=== PATIENT | female | born 1955 | race Caucasian/White ===

== ENCOUNTER 2022-03-14 14:38 | Inpatient (IN) | payer BC ==
[~2022-03-14] VITALS: Ht 160 cm; Wt 67.7 kg
[2022-03-14 15:00] VITALS: BP_SYST 149
[2022-03-14 17:49] LABS: MEAN CORPUSCULAR HEMOGLOBIN 23 pg (27-31); MEAN CORPUSCULAR HGB CONC 31 % (32-36); MEAN CORPUSCULAR VOLUME 76 fL (79.0-98.0); PLATELET COUNT (AUTO) 133 K/uL (130-430); RED BLOOD CELL COUNT(AUTO) 2.85 MIL/uL (4.2-6.2); RED CELL DISTRIBUTION WIDTH 18.8 % (9.0-15.0); WHITE BLOOD COUNT (AUTO) 3.8 K/uL (4.8-10.8)
[2022-03-14 18:02] LABS: CALCIUM 8.4 mg/dL (8.4-11.0); CREATININE 0.66 mg/dL (0.55-1.30); POTASSIUM 3.5 mmol/L (3.5-5.1)
[2022-03-14 18:07] LABS: ALBUMIN 2.6 g/dL (3.4-4.8); TOTAL BILIRUBIN 1.6 mg/dL (0.0-1.0)
[2022-03-14 23:16] LABS: HEMOGLOBIN 6.6 g/dL (12.0-16.0)
[2022-03-14 23:17] LABS: BAND % (MANUAL) 1 % (0-6); BASOPHILS % (MANUAL) 0 % (0-2); EOSINOPHILS % (MANUAL) 3 % (0-7); HEMATOCRIT 21.6 % (36-48); LYMPHOCYTES % (MANUAL) 19 % (20-46); MONOCYTES % (MANUAL) 1 % (0-11)
[2022-03-15 00:56] VITALS: BP_SYST 137
[2022-03-15 01:14] VITALS: BP_SYST 134
[2022-03-15] MEDS: ACETAMINOPHEN 325 MG TABLET PO PRN (06:20)
[2022-03-15 08:00] VITALS: BP_SYST 156
[2022-03-15] MEDS ORDERED: LORazepam 2 MG/ML VIAL IVP PRN (11:15)
[2022-03-15] MEDS ORDERED: ONDANSETRON HCL 4 MG/2 ML VIAL IVP PRN (11:15)
[2022-03-15] MEDS ORDERED: ACETAMINOPHEN 325 MG TABLET PO PRN (11:15)
[2022-03-15 11:37] LABS: BASOPHILS % (AUTO) 0.5 % (0.0-2.0); HEMATOCRIT 23.5 % (36-48); HEMOGLOBIN 7.5 g/dL (12.0-16.0); LYMPHOCYTES # (AUTO) 1.3 K/uL (1.0-5.5); LYMPHOCYTES % (AUTO) 28.5 % (20.5-51.5); MEAN CORPUSCULAR HEMOGLOBIN 25 pg (27-31); MEAN CORPUSCULAR HGB CONC 32 % (32-36); MEAN CORPUSCULAR VOLUME 77 fL (79.0-98.0); MONOCYTES # (AUTO) 0.3 K/uL (0.0-1.0); MONOCYTES % (AUTO) 7.4 % (1.7-9.3); NEUTROPHILS # (AUTO) 2.8 K/uL (1.8-7.7); NEUTROPHILS % (AUTO) 62.6 % (40.0-70.0); PLATELET COUNT (AUTO) 102 K/uL (130-430); RED BLOOD CELL COUNT(AUTO) 3.06 MIL/uL (4.2-6.2); RED CELL DISTRIBUTION WIDTH 18.7 % (9.0-15.0); WHITE BLOOD COUNT (AUTO) 4.4 K/uL (4.8-10.8)
[2022-03-15 12:00] VITALS: BP_SYST 155
[2022-03-15 12:32] LABS: CREATININE 0.68 mg/dL (0.55-1.30)
[2022-03-15 13:16] LABS: POTASSIUM 2.9 mmol/L (3.5-5.1)
[2022-03-15] MEDS ORDERED: POTASSIUM CHLORIDE 40 MEQ in NS 250 ML IV ONE (15:00)
[2022-03-15] MEDS: NORMAL SALINE 5 ML DISP.SYRIN IVF SCH ×4 (15:22→23:16)
[2022-03-15 16:00] VITALS: BP_SYST 151
[2022-03-15 20:00] VITALS: BP_SYST 147
[2022-03-16] MEDS: ACETAMINOPHEN 325 MG TABLET PO PRN ×2 (01:11→22:07)
[2022-03-16] MEDS: NORMAL SALINE 5 ML DISP.SYRIN IVF SCH ×6 (06:18→22:12)
[2022-03-16 07:00] VITALS: BP_SYST 145
[2022-03-16 08:00] VITALS: BP_SYST 145
[2022-03-16 09:15] LABS: CALCIUM 8.1 mg/dL (8.4-11.0); CREATININE 0.59 mg/dL (0.55-1.30)
[2022-03-16 09:22] LABS: POTASSIUM 2.8 mmol/L (3.5-5.1)
[2022-03-16 10:41] LABS: TOTAL IRON BIND. CAPACITY 297 ug/dL (250-450)
[2022-03-16 12:00] VITALS: BP_SYST 115
[2022-03-16 12:35] LABS: BASOPHILS % (AUTO) 0.4 % (0.0-2.0); EOSINOPHILS # (AUTO) 0.1 K/uL (0.0-0.4); EOSINOPHILS % (AUTO) 3.4 % (0.0-4.0); HEMATOCRIT 27.8 % (36-48); LYMPHOCYTES # (AUTO) 1.5 K/uL (1.0-5.5); LYMPHOCYTES % (AUTO) 40.4 % (20.5-51.5); MEAN CORPUSCULAR HEMOGLOBIN 26 pg (27-31); MEAN CORPUSCULAR HGB CONC 33 % (32-36); MEAN CORPUSCULAR VOLUME 79 fL (79.0-98.0); MONOCYTES # (AUTO) 0.2 K/uL (0.0-1.0); NEUTROPHILS # (AUTO) 1.9 K/uL (1.8-7.7); NEUTROPHILS % (AUTO) 49.8 % (40.0-70.0); PLATELET COUNT (AUTO) 85 K/uL (130-430); RED BLOOD CELL COUNT(AUTO) 3.52 MIL/uL (4.2-6.2); RED CELL DISTRIBUTION WIDTH 19.9 % (9.0-15.0); RETICULOCYTE COUNT 2.1 % (0.5-1.5); WHITE BLOOD COUNT (AUTO) 3.8 K/uL (4.8-10.8)
[2022-03-16] MEDS ORDERED: POTASSIUM CHLORIDE 20 MEQ/PKT PACKET PO ONE (15:00)
[2022-03-16 16:15] VITALS: BP_SYST 143
[2022-03-16 20:00] VITALS: BP_SYST 120
[2022-03-17] VITALS (7 sets, daily range): BP systolic 134–139
[2022-03-17] MEDS: NORMAL SALINE 5 ML DISP.SYRIN IVF SCH ×4 (06:40→13:52)
[2022-03-17 07:43] LABS: BASOPHILS % (AUTO) 0.7 % (0.0-2.0); EOSINOPHILS # (AUTO) 0.2 K/uL (0.0-0.4); EOSINOPHILS % (AUTO) 4.4 % (0.0-4.0); HEMATOCRIT 27.4 % (36-48); HEMOGLOBIN 8.7 g/dL (12.0-16.0); LYMPHOCYTES # (AUTO) 1.5 K/uL (1.0-5.5); LYMPHOCYTES % (AUTO) 41.4 % (20.5-51.5); MEAN CORPUSCULAR HEMOGLOBIN 25 pg (27-31); MEAN CORPUSCULAR HGB CONC 32 % (32-36); MEAN CORPUSCULAR VOLUME 79 fL (79.0-98.0); MONOCYTES # (AUTO) 0.3 K/uL (0.0-1.0); MONOCYTES % (AUTO) 7.3 % (1.7-9.3); NEUTROPHILS # (AUTO) 1.7 K/uL (1.8-7.7); NEUTROPHILS % (AUTO) 46.2 % (40.0-70.0); PLATELET COUNT (AUTO) 81 K/uL (130-430); RED BLOOD CELL COUNT(AUTO) 3.46 MIL/uL (4.2-6.2); WHITE BLOOD COUNT (AUTO) 3.7 K/uL (4.8-10.8)
[2022-03-17 08:06] LABS: FOLATE (FOLIC ACID) 4.9 ng/mL (>3.0)
[2022-03-17 08:14] LABS: CALCIUM 7.9 mg/dL (8.4-11.0); CREATININE 0.56 mg/dL (0.55-1.30)
[2022-03-17 09:34] LABS: POTASSIUM 3.2 mmol/L (3.5-5.1)
[2022-03-17] MEDS ORDERED: FERR250T2 PO (10:06)
== END 2022-03-17 14:30 | disposition home health service (06) | DRG 811 ==
LOC: SED 14:38 → EDSEX 14:38 → EDSTATUS 14:38 → SMU 20:02
PROVIDERS: ADMIT Preventive Medicine Preventive Medicine/Occupational Environmental Medicine; ATTEND Preventive Medicine Preventive Medicine/Occupational Environmental Medicine
PROC: 30233N1 Transfusion of Nonautologous Red Blood Cells into Peripheral Vein, Percutaneous Approach (ICD-10-PCS; principal; 2022-03-15)
DX: D50.9 Iron deficiency anemia, unspecified (principal); E43 Unspecified severe protein-calorie malnutrition; D61.818 Other pancytopenia; R73.9 Hyperglycemia, unspecified; E88.09 Other disorders of plasma-protein metabolism, not elsewhere classified; E66.9 Obesity, unspecified; E83.51 Hypocalcemia; E83.52 Hypercalcemia; E87.6 Hypokalemia; I10 Essential (primary) hypertension; K74.60 Unspecified cirrhosis of liver; Z20.822 Contact with and (suspected) exposure to COVID-19; K75.81 Nonalcoholic steatohepatitis (NASH); D69.6 Thrombocytopenia, unspecified; Z68.26 Body mass index [BMI] 26.0-26.9, adult; Z79.899 Other long term (current) drug therapy
CPT/HCPCS: 36415; 76700-TC; 80048; 80053; 82607; 82728; 82746; 83540; 83550; 85007; 85025; 85027; 85044; 86886; 86900; 86901; 86920; 97116-GP; 97530-GP; 99285; J3480; J7050; P9021